=== PATIENT | female | born 1955 | race Caucasian/White ===

== ENCOUNTER 2017-02-23 08:53 | Observation (INO) | payer MEDICARE, OTHER ==
--- NOTE | ~2017-02-23 | DS ---
Unit #: [id number] #: [id number] Patient: ROXIE TURNER [id number] [address] [address] [id number] I MR#: [id number] NAME: ROXIE UTRNER ROOM: 314 Age: 61 Sex: F Admission Date: 02/23/2017 : 1955 Discharge Date: 02/24/2017 Attending Physician: Donovan Ramos M.D. Primary Care Physician: Godfrey Capone M.D. DISCHARGE SUMMARY PRIMARY DIAGNOSIS Hematochezia. SECONDARY DIAGNOSES 1. Abdominal pain. 2. Hypertension. 3. Hyperlipidemia. 4. Diet-controlled diabetes. 5. Chronic obstructive pulmonary disease. 6. Chronic respiratory failure, on 2 liters of oxygen q.h.s. 7. Depression. 8. Anxiety. 9. Mild hypochondria, per family. HOSPITAL COURSE The patient was placed in observation status, underwent endoscopy without any evidence of bleeding. Her hemoglobin remained normal. Her abdominal pain went away. CT scan of the abdomen in the emergency room showed no acute inflammatory changes, only showing mild fatty infiltration of the liver. After negative colonoscopy and no further symptoms, the patient was deemed stable for medical discharge. DISCHARGE DISPOSITION To home. DISCHARGE STATUS Stable. DISCHARGE ACTIVITY Ad viki. DISCHARGE DIET Resume her previous home diet as tolerated. DISCHARGE MEDICATIONS Please see discharge med/rec. They are unchanged from her admission. DISCHARGE FOLLOWUP Discharge followup is with her PCP in 2-6 weeks. Unit #: [id number] #: [id number] Patient: ROXIE TURNER Dictated by... Donovan Ramos M.D. MATTHEW/harvinder TD: 02/25/2017 11:44 JOB #: [id number] DISCHARGE SUMMARY Page 1 of 1 X Donovan Ramos MD X DISCHARGE SUMMARY
--- NOTE | ~2017-02-23 | OR ---
Unit #: [id number] #: [id number] Patient: ROXIE TURNER [id number] [address] [address] [id number] I MR#: [id number] NAME: ROXIE TURNER ROOM: 314 Date of Procedure: 02/24/2017 Admission Date: 02/23/2017 Surgeon: Dwight Kilpatrick M.D. : 1955 Attending Physician: Donovan Ramos M.D. Primary Care Physician: Godfrey Capone M.D. OPERATIVE REPORT PREOPERATIVE DIAGNOSIS Gastrointestinal bleeding. POSTOPERATIVE DIAGNOSIS Gastrointestinal bleeding. PROCEDURES PERFORMED 1. Esophagogastroduodenoscopy. 2. Colonoscopy to cecum. ANESTHESIA Monitored anesthesia care. FINDINGS On upper endoscopy, the patient was found to have a small hiatal hernia and mild gastritis. On colonoscopy, the colon was normal to the cecum other than mild internal hemorrhoids. SPECIMENS None. COMPLICATIONS None apparent. CONDITION The patient tolerated the procedure well. INDICATIONS FOR PROCEDURE The patient is a 61-year-old white female, who presented with rectal bleeding. She presents at this time for evaluation by upper and lower endoscopy. DESCRIPTION OF PROCEDURE After obtaining informed consent, the patient was brought to the endoscopy suite and after adequate monitored anesthesia care, had the endoscope placed through the mouth into the upper esophagus under direct vision. It was advanced to the second portion of the duodenum without difficulty with the lumen always in view. The duodenum was normal as was the duodenal bulb. The pylorus opened normally. There was some mild distal gastritis present. On retroflexion back to the GE junction, there was a small hiatal hernia seen. No other abnormalities were found in the proximal third, middle third, or incisura. On pulling back above the GE junction, Unit #: [id number] #: [id number] Patient: ROXIE TURNER the patient was found to have no stenosis, stricture, or neoplasm seen. The remaining portion of the esophagus was within normal limits. Laryngeal structures were grossly normal as viewed from above. At this point in time, the colonoscope was placed through the anus and slowly advanced to the level of the cecum without difficulty with the lumen always in view. There was no blood seen. The cecum was normal as was the ileocecal valve. The ascending colon was normal as was the hepatic flexure, transverse colon, splenic flexure, descending colon, sigmoid colon, and rectum. No diverticula were seen. There was no blood seen. On retroflexing in the rectum to the anorectal junction, the patient was found to have some mild internal hemorrhoids. The scope was removed without difficulty. The patient tolerated the procedure well and went from the endoscopy suite to recovery area in stable condition. RECOMMENDATIONS Resume preop orders and medications. Diet of choice. All results were communicated to Dr. Ramos of [facility] Physician. Dictated by... Eneida Vidales/beatriz TD: 02/24/2017 16:10 JOB #: [id number] OPERATIVE REPORT Page 1 of 1 X Dwight Kilpatrick MD X PROCEDURE OPERATIVE NOTE
--- NOTE | ~2017-02-23 | CO ---
Unit #: [id number] #: [id number] Patient: ROXIE MARIANO [id number] [address] [place], [place] [address] [id number] I MR#: [id number] NAME: ROXIE MARIANO ROOM: 314 Age: 61 Sex: F Admission Date: 02/23/2017 : 1955 Attending Physician: Donovan Ramos M.D. Primary Care Physician: Godfrey Capone M.D. Consultation Date: 02/23/2017 CONSULTATION REPORT HISTORY OF PRESENT ILLNESS Ms. Mariano is a pleasant 60-year-old female, who woke up at 8:00 this morning, developed some colicky abdominal pain, and then had 2 episodes of bright red blood per rectum. Since that time, she has not passed any further blood and she denies fever, chills, nausea, or vomiting. Her last colonoscopy was on 01/04/[address] Lindsey and was normal up to the cecum and including the terminal ilium. She denies any anticoagulants or antiplatelet agents. She has not had any trauma and she denies any abdominal discomfort. PAST MEDICAL HISTORY Hypertension, hyperlipidemia, diabetes, COPD, depression, anxiety, she is on 2 L of oxygen per nasal cannula at night, she has had D and C, carpal tunnel surgery, ERCP, and pancreatic stent placement for dilated pancreatic duct in 2014 and has subsequently been removed. EGD and colonoscopy in 12/2012 was generally unremarkable. ALLERGIES She is allergic to hydrocodone causes vomiting. HOME MEDICATIONS Include Ventolin, Symbicort, diltiazem, and Tylenol. FAMILY HISTORY Diabetes. SOCIAL HISTORY Lives with her son. She no longer smokes, but does have a 50 pack year history. Social alcohol drinker. REVIEW OF SYSTEMS Otherwise, unremarkable. In particular, no hematemesis or melena. She denies any weight loss. PHYSICAL EXAMINATION VITAL SIGNS: Temperature is 98.3, pulse 93, respirations 16, blood pressure 130/70. GENERAL: Awake, alert, oriented, in no acute distress. Pleasant, in good spirits. HEENT: Unremarkable. CARDIAC: Regular rhythm. LUNGS: Clear. ABDOMEN: Soft, nondistended, nontender. EXTREMITIES: No edema. Unit #: [id number] #: [id number] Patient: ROXIE MARIANO NEUROLOGIC: Grossly intact. DIAGNOSTIC STUDIES LABORATORY RESULTS: Comprehensive metabolic panel was within normal limits. INR is 1.0. Urinalysis is negative. Hemoglobin 13, white count 7004, normal differential, platelets 204,000. IMAGING STUDIES: CT scan shows hepatic steatosis, but otherwise is negative. ASSESSMENT AND PLAN 2 episodes of bright red blood per rectum this morning. The patient remains hemodynamically stable. She will be admitted to the hospital and hydrated and we will plan on doing a bowel prep and repeating her colonoscopy to define the etiology of the bleeding. I discussed procedure with the patient. She understands. Dictated by... Eneida Velasquez/beatriz TD: 02/23/2017 23:04 JOB #: [id number] CONSULTATION REPORT Page 1 of 1 X Tiago Ariza MD X CONSULTATION REPORT
--- NOTE | ~2017-02-23 | CT2 ---
[facility] A Service of [facility] RADIOLOGY TEXT RESULTS PATIENT: ROXIE TURNER LOCATION: [facility] 314-01 : 53 UNIT #: [id number] AGE: [address]: Donovan Ramos MD SEX: F ORDER DR: [id number] [facility] [address] [place], [place] [address] [id number] I MR#: [id number] Acc #: [id number] NAME: ROXIE TURNER : 1955 SEX: F STUDY DATE/TIME: 02/23/2017 11:35 UNIT: [address] ROOM: [facility] STUDY DESCRIPTION: CT Abd and Pelv W Cont Attending Physician: Ellyn Christiansen M.D. Ordering Physician: Shanice Williamson P.A.-C. Primary Care Physician: Godfrey Capone M.D. MEDICAL IMAGING REPORT This report is preliminary unless electronic signature is present EXAM Abdomen and pelvis CT with contrast HISTORY Lower abdominal cramping and bloody stools beginning this morning. TECHNIQUE Axial images were obtained with oral and intravenous contrast. 100 mL of Isovue was used. The CT exam was performed with one or more of the following radiation dose reduction techniques: automatic exposure control, adjustment of mA and/or kV according to patient size, and iterative reconstruction. FINDINGS The liver shows mild diffuse fatty infiltration. The spleen, pancreas, kidneys and adrenals are unremarkable. There is no evidence of retroperitoneal adenopathy or ascites. No distended bowel loops are seen to suggest an obstruction. No significant mucosal thickening is seen in the colon. In the pelvis there is no evidence of adenopathy, mass or fluid collection. IMPRESSION Mild fatty infiltration of the liver. No acute inflammatory changes in the abdomen or pelvis. No evidence of colitis by CT criteria. Dictated by... Tiago Barron M.D. THIS IS AN ELECTRONICALLY VERIFIED REPORT Tiago Barron M.D. at 02/25/2017 4:55 PM [facility] A Service of [facility] RADIOLOGY TEXT RESULTS PATIENT: ROXIE TURNER LOCATION: [facility] 314-01 : [birth year] UNIT #: [id number] AGE: [address]: Donovan Ramos MD SEX: F ORDER DR: ELIA/aide TD: 02/24/2017 08:38 JOB #: [id number] MEDICAL IMAGING REPORT Page 1 of 1 COPY
--- NOTE | ~2017-02-23 | EKG ---
PATIENT: ROXIE TURNER UNIT #: [id number] Ventricular Rate: 88 BPM Atrial Rate: 88 BPM P-R Interval: 144 ms QRS Duration: 88 ms Q-T Interval: 356 ms QTC Calculation(Bezet): 430 ms P Hardwick: 79 degrees Calculated R Hardwick: 49 degrees Calculated T Hardwick: 55 degrees Diagnosis Line: Normal sinus rhythm Diagnosis Line: Normal ECG Diagnosis Line: When compared with ECG of 23-APR-2010 09:44, Diagnosis Line: No significant change was found Diagnosis Line: Confirmed by KAYLAH TRINIDAD MD ([id number]) on Diagnosis Line: 02/24/2017 5:13:11 PM INTERPRETING MD: KELSY
--- NOTE | ~2017-02-23 | HP ---
Unit #: [id number] #: [id number] Patient: ROXIE TURNER [address] [facility]. [place], [place] [address] [id number] MR#: [id number] NAME: ROXIE TURNER ROOM: Age: Sex: F Admission Date: 02/23/2017 : 1955 Attending Physician: Shanice Williamson P.A.-C. Primary Care Physician: Godfrey Capone M.D. HISTORY AND PHYSICAL CHIEF COMPLAINT GI bleed. HISTORY OF PRESENT ILLNESS The patient is a 61-year-old female with past medical history of hypertension, hyperlipidemia, diabetes, COPD, chronic respiratory failure, depression/anxiety, who presented to the emergency department for evaluation of the above. The patient states that she was in her usual state of health until the day of admission when she developed blood in the stool. She states that initially the blood was dark. The subsequent time it was bright red. She has had loose stool as well. She reports cramping in the lower abdomen that has been intermittent in nature. There are no exacerbating or alleviating factors. She denies any fever. No cough or cold symptoms. In the emergency department, the patient's pulse and blood pressure were 118 and 168/79 respectively. She was noted to be heme positive. Hemoglobin is 13. The patient had an EGD and colonoscopy January 04, 2013, with Dr. Lindsey that showed small hiatal hernia, mild prepyloric antral nonerosive gastritis and completely normal colonoscopy. She had ERCP with pancreatic stent placement on December 09, 2014. She states that it was subsequently removed by Dr. Patterson. She is being admitted to [facility] for evaluation and further treatment. PAST MEDICAL HISTORY 1. Hypertension. 2. Hyperlipidemia. 3. Diabetes, diet controlled. 4. 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 The patient has seen Dr. Luo here at [place] in the past. 5. Chronic respiratory failure, on 2 L of oxygen per nasal cannula at night. 6. Depression/anxiety. PAST SURGICAL HISTORY 1. D and C. 2. Carpal tunnel surgery. 3. ERCP and pancreatic stent placement December 09, 2014, with subsequent removal by Dr. Patterson. 4. EGD and colonoscopy January 04, 2013, showed small hiatal hernia, mild pyloric antral nonerosive gastritis and completely normal colonoscopy. SOCIAL HISTORY Unit #: [id number] #: [id number] Patient: ROXIE TURNER The patient lives with her son. She quit smoking. She has a 50 pack-year smoking history. She reports occasional alcohol use. FAMILY HISTORY Notable for diabetes. ALLERGIES Hydrocodone. HOME MEDICATIONS 1. Ventolin. 2. Symbicort. 3. Diltiazem. 4. Tylenol. Home medications will need to be reviewed and verified. REVIEW OF SYSTEMS A complete review of systems is negative except as indicated in HPI. The patient denies any change in her weight. DIAGNOSTIC STUDIES IMAGING: CT of the abdomen and pelvis shows nothing acute. LABORATORY: Hemoglobin and hematocrit 13 and 40.2 respectively. INR is 1. Comprehensive metabolic panel notable for glucose of 131. Urinalysis is essentially negative. PHYSICAL EXAMINATION VITAL SIGNS: Temperature is 98.3, pulse 118, respirations 16, blood pressure 168/79. Oxygen saturation is 98% on room air. GENERAL: The patient is a female who is awake and alert, in no acute distress. HEENT: The head is atraumatic. Mucous membranes are moist. NECK: Supple. Trachea is midline. CARDIOVASCULAR: Regular rate and rhythm. LUNGS: Clear to auscultation bilaterally with no increased work of breathing. ABDOMEN: Soft, nontender with bowel sounds present in all four quadrants. EXTREMITIES: Nontender with no pedal edema. NEURO: The patient is awake and alert. She follows commands. PSYCH: Mood and affect are normal. The patient is cooperative. SKIN: Skin of examined areas is warm and dry. ASSESSMENT The patient is a 61-year-old female with: 1. Hematochezia with hemoglobin of 13. 2. Abdominal pain. 3. Hypertension. 4. Hyperlipidemia. 5. Diabetes, diet controlled. 6. Chronic obstructive pulmonary disease. 7. Chronic respiratory failure, on 2 L of oxygen at night. 8. Depression/anxiety. 9. Former smoker. Unit #: [id number] #: [id number] Patient: ROXIE TURNER PLAN 1. Admit for observation to intermediate level. 2. Clear liquid diet for possible endoscopy. 3. Normal saline at 75 mL/hour. 4. Hemoglobin and hematocrit q.[address] Lindsey regarding hematochezia. 6. Check EKG for further evaluation of tachycardia. 7. Hemoglobin A1c. 8. Low dose sliding scale with Accu-Cheks. 9. Supplemental oxygen. 10. P.r.n. Duo-Nebs. 11. SCDs for DVT prophylaxis. 12. Repeat labs in the morning. 13. Additional workup and consultants based on above. Dictated by Eneida Li/yamilet TD: 02/23/2017 14:43 JOB #: [id number] HISTORY AND PHYSICAL Page 1 of 1 X Ellyn Christiansen MD X HISTORY AND PHYSICAL
[~2017-02-23 08:53] MED LIST: ADVAIR 250-501 EACH IH; ALBUTEROL 0.5ML; ALBUTEROL 0.5ML INH; ALBUTEROL17 GM; ALBUTEROL17 GM INH; AMARYL PO; CARTIA XT PO; CARVEDILOL3.125 MG PO; COREG12.5 MG PO; COZAAR100 MG PO; DELTASONE20 MG PO; DILTIA XT120 MG PO; KLONOPIN1 MG PO; LEVAQUIN750 MG PO; LISINOPRIL20 MG PO; METFORMIN HCL500 M1 PO; NICOTINE PATCH1 BOX TD; PERCOCET 5/321 UDTAB PO; PREDNISONE PO; PRILOSEC PO; SIMVASTATIN10 MG; SPIRIVA18 MCG INH; SYMBICORT INH; ZESTORETIC; ZESTRIL5 MG PO; ZITHROMAX PO; [UNRECOGNIZED DRUG - OTHER] PO
[2017-02-23 09:51] LABS: BASOPHIL% 0.5 % (0-2.5); DIFF IND NO; EOSINOPHIL# 0.1 X10e3 (0-0.7); EOSINOPHIL% 0.7 % (0.0-7.0); HEMATOCRIT 40.2 % (35.0-45.0); LYMPHOCYTE# 2.1 X10e3 (1.0-3.5); LYMPHOCYTE% 28.2 % (17.0-45.0); MEAN CELL VOLUME 85.3 FL (83-96); MEAN CORPUSCULAR HEMOGLOBIN 27.6 PG (28-34); MEAN CORPUSCULAR HGB CONC 32.4 g/dL (30-36); MONOCYTE# 0.5 X10e3 (0-1.0); MONOCYTE% 6.8 % (3.0-12.0); NEUTROPHIL# 4.8 X10e3 (1.5-7.1); NEUTROPHIL% 63.8 % (40-75); PLATELET COUNT 204 X10e3 (140-420); RED BLOOD COUNT 4.71 X10e (3.90-5.30); RED CELL DISTRIBUTION WIDTH 14.1 % (11.0-15.5); WHITE BLOOD COUNT 7.4 X10e3 (4.0-10.5)
[2017-02-23 10:05] LABS: PARTIAL THROMBOPLASTIN TIME 30.1 SECONDS (23.5-31.3); PROTHROMBIN TIME (PATIENT) 10.9 SECONDS (10.0-11.7)
[2017-02-23 10:16] LABS: ALBUMIN SERUM 3.8 g/dL (3.5-5.0); BILIRUBIN, DIRECT 0.1 mg/dL (0.0-0.2); BILIRUBIN,INDIRECT 0.6 mg/dL (0.0-0.9); BILIRUBIN,TOTAL 0.7 mg/dL (0.2-2.0); CALCIUM SERUM 8.9 mg/dL (8.4-10.2); GLOM FILT RATE Estimated 59.9 mL/min (>60); POTASSIUM 4.2 mmol/L (3.5-5.1); PROTEIN TOTAL SERUM 7.5 g/dL (6.0-8.3)
[2017-02-23 10:58] LABS: URINE SOURCE CLEAN CATCH
[2017-02-23 11:02] LABS: URINE APPEARANCE CLEAR; URINE BILIRUBIN NEG (NEG); URINE BLOOD NEG (NEG); URINE COLOR YELLOW; URINE GLUCOSE NEG (NEG); URINE KETONE NEG (NEG); URINE LEUKOCYTE ESTERASE NEG (NEG); URINE NITRATE NEG (NEG); URINE PROTEIN NEG (NEG); URINE SPECIFIC GRAVITY 1.008 (1.003-1.035); URINE UROBILINOGEN 0.2 MG/DL (NEG)
[2017-02-23 11:04] LABS: CULTURE INDICATED? NO
[2017-02-23 14:48] LABS: HEMATOCRIT 40.7 % (35.0-45.0)
[2017-02-23] MEDS ORDERED: DILTIAZEM 24HR120 MG PO (16:55)
[2017-02-23] MEDS ORDERED: ALBUTEROL17 GM INH (16:55)
[2017-02-23] MEDS ORDERED: SYMBICORT80 INH (16:55)
[2017-02-23 21:06] LABS: HEMOGLOBIN 13.2 gm/dL (12.0-16.0)
[2017-02-24 03:00] LABS: HEMATOCRIT 39.6 % (35.0-45.0); HEMOGLOBIN 12.7 gm/dL (12.0-16.0); MEAN CELL VOLUME 86.1 FL (83-96); MEAN CORPUSCULAR HEMOGLOBIN 27.6 PG (28-34); MEAN PLATELET VOLUME 8.2 FL (6.5-11.5); RED BLOOD COUNT 4.6 X10e (3.90-5.30); WHITE BLOOD COUNT 7.9 X10e3 (4.0-10.5)
[2017-02-24 03:27] LABS: BUN/CREATININE RATIO 14.28; CALCIUM SERUM 8.8 mg/dL (8.4-10.2); CREATININE SERUM 0.7 mg/dL (0.6-1.4); GLOM FILT RATE Estimated 92.2 mL/min (>60); MAGNESIUM 2.4 mg/dL (1.6-3.0); PHOSPHOROUS 3.8 mg/dL (2.5-4.6); POTASSIUM 3.4 mmol/L (3.5-5.1)
== END 2017-02-24 14:57 | disposition home or self-care (01) ==
LOC: CED 08:53 → CEDOF 16:19 → C3A PCU 16:30
PROVIDERS: Family Medicine; Physician Assistant
DX: K92.1 Melena (principal); R10.9 Unspecified abdominal pain; K44.9 Diaphragmatic hernia without obstruction or gangrene; K29.70 Gastritis, unspecified, without bleeding; I10 Essential (primary) hypertension; E78.5 Hyperlipidemia, unspecified; E11.9 Type 2 diabetes mellitus without complications; J44.9 Chronic obstructive pulmonary disease, unspecified; J96.10 Chronic respiratory failure, unspecified whether with hypoxia or hypercapnia; Z99.81 Dependence on supplemental oxygen; K76.0 Fatty (change of) liver, not elsewhere classified; F41.8 Other specified anxiety disorders; Z87.891 Personal history of nicotine dependence; F45.21 Hypochondriasis
CPT/HCPCS: 36415; 74177; 80048; 80076; 81003; 82947; 83036; 83735; 84100; 85014; 85018; 85025; 85027; 85610; 85730; 86850; 86900; 86901; 93005; 94760; 96360; 96361; 96374; 96376; 99284; G0378; J2765; Q9967